=== PATIENT | male | born 1955 | race Caucasian/White ===

== ENCOUNTER → 2024-07-04 08:32 | Outpatient (REF) | payer MEDICARE, OTHER, SELFPAY ==
--- NOTE | 2024-06-30 14:44 | PN.DIAED02 ---
Referral
DSME Class Series Code: [id number]
Referred For: Diabetes Self-Management Training, Medical Nutrition Therapy, Self-Blood Glucose Monitoring, Long-Term Complication Instruction, Accute Complication Instruction, Continuous Glucose Monitoring, Medication management, Care Coordination,
Disease Management
PHI Release Authorization Form Signed: Yes
Patient Problems:
Current Active Problems
Problem Status Onset
Type 2 diabetes mellitus with hyperglycemia ~06/08/24
Demographic
(1) Type 2 diabetes mellitus with hyperglycemia
Status: Chronic Onset Date: ~06/08/24 Code(s): E11.65 - Type 2 diabetes mellitus with hyperglycemia
Patient's primary language-: Mongolian
Education: Some college
Occupation: Self-employed (angel)
Hours Worked/Week: 20-40
Shift: Day
- Social
Primary Support Person: Self
Primary Care Takers: Self
Living Arrangements: Self & spouse, Family
- Learning Methods
Preferred Method: Hands-on demonstration
Barriers to Learning: None
Glycemic Control
- Blood Glucose Monitoring Assessment
Blood glucose monitoring at home: No
- Hyperglycemia Assessment
Experiences Hyperglycemia: Yes
Frequency: 1-3x per week (FEELS TIRED)
- Hypoglycemia Assessment
Patient experiences hypoglycemia: No
- Hemoglobin A1c
Date: 06/16/24
A1C Percentage (%): 8.7
Medical History of Diabetes
Family Diabetes History: Unknown
Previous Diabetes Education: No
Previous visit with Dietitian: No
Complications/Comorbidity/Specialist: Hyperlipidemia (SIMVASTATIN 40 MG QD), Metabolic (DIABETES: METFORMIN 500 MG QD)
Measures
- Anthropometrics
Height: 6 ft 3 in
Actual Weight: 251 lb
- Blood Pressure / Pulse
Blood pressure: 133/69
Pulse: 79
- Diabetes Management
Medical Management for Diabetes: Complete physical exam (06/08/2024), Dental exam (06/21/2024)
Self-Care
- Tobacco Usage
Do you now, or have you ever smoked?: Never smoked
- Alcohol & Drugs Usage
Drinks Alcohol: Yes
Amount/day: Other (1 DRINK/WEEK)
- Meals & Dining
Meals & Dining: Patient skips meals: No, Food Intolerance / Allergy: Yes (SCALLOPS), Cultural / Hindu Dietary Needs: No
Primary Food Assistant G[employer] Of Content [employer] Delivery: Self
Primary Soft Crab Shedder: Self
Dining Out Frequency: Occasionally
- Physical Activity
Physical Limitation: No
Patient participates in physical Activity: Yes
Activity Types: walking
Duration: 21-30 minutes
Frequency: 3-5x per week
- Self Foot-Care
Foot Problems: None
Performs Self Foot-Exam: No
- Patient-Self Assessment
Diabetes Knowledge: Poor
Feelings About Diabetes: Acceptance
General Health: Good
Importance of Health: Extremely
Stress Level: High
Diabetes Interferes With:: Nothing
Barriers to Diabetes Management: Nothing
Depression Survey Score: 0
- Diabetes Identification
Carries Diabetes Identification: No
Diabetes Identification Information Provided: Yes
Care Plan
- Education Needs
Patient Education Needs: Diabetes disease process, Chronic complications, Acute complications, Medication, Monitoring, Physical activity, Psychosocial Adjustment, Nutritional management, Goal setting & problem solving
Recommended Diabetes Training Program based on assessment: Outpatient Diabetes Education Program
- Plan of Care
Plan of Care:
06/30/2024 INITIAL DSME MEETING
Met with Colin and his to discuss diabetes management, he is newly diagnosed with T2D as of May, with HbA1c 8.7%. He does not have diabetic testing supplies, has PCP follow up in August 2024.
I educated on pathophysiology of T2D vs. T1D, complications, importance of proper foot care and eye exams. I provided education on meaning of HbA1c, educated on signs of hyperglycemia, he admits to feeling frequent very tired. Educated on signs of
hypoglycemia and hypoglycemia protocol, he denies symptoms.
I reviewed BS goals, recommended he SMGB once daily for 1-2 weeks, including preprandial AM and 2 hours post prandial with different meals and also documenting meal choices. Suggested he review with diabetes team and PCP in the future.
I provided Contour Next glucometer kit, demonstrated on proper use. He completed a repeat demonstration of checking glucose levels, BS 131 3 hours postprandial.
Requested order for diabetic testing supplies to [facility].
Written material provided. Asked patient to contact health insurer to discuss coverage and fees for DMSE class accredited by [employer], he verbalized understanding. Encouraged her to contact office before class with any concerns.
--- NOTE | 2024-07-01 08:44 | PN.DIAED04 ---
Education Record
- Education Record
Class Attended: Other (INITIAL DSME MEETING)
DSME Class Series Code: [id number]
Instructor: Nurse Practitioner (COURTNEY Hurst)
Pre-Program Knowledge: Needs review / Assistance
Pre-Test Score (%): 8
Goals
- Goal 1
Being Active: Exercise 15 minutes-3 times per week
Goals To Be Evaluated: Exercise 15 mins-3x/week
- Goal 2
Healthy Eating: Reduce portion sizes
Goals To Be Evaluated: Reduce portion sizes
- Goal 3
Monitoring: Follow monitoring schedule
Goals To Be Evaluated: Follow monitoring times
--- NOTE | 2024-07-07 09:18 | PN.DIAED06 ---
Meal Plans - Regular
- Meal Plan
Diabetic Meal Plan Name: 2200 calories
Breakfast - Total Carbohydrate (grams): 60
Breakfast - Starch Carbohydrate: 0
Breakfast - Fruit Carbohydrate: 0
Breakfast - Milk Carbohydrate: 0
Breakfast - Nonstarchy Vegetables: Yes
Breakfast - Meat/Protein: 1
Breakfast - Fat: 2
Morning Snack - Total Carbohydrate (grams): 30
Morning Snack - Starch Carbohydrate: 0
Morning Snack - Fruit Carbohydrate: 0
Morning Snack - Milk Carbohydrate: 0
Morning Snack - Nonstarchy Vegetables: Yes
Morning Snack - Meat/Protein: 0.5
Morning Snack - Fat: 0
Lunch - Total Carbohydrate (grams): 45
Lunch - Starch Carbohydrate: 0
Lunch - Fruit Carbohydrate: 0
Lunch - Milk Carbohydrate: 0
Lunch - Nonstarchy Vegetables: Yes
Lunch - Meat/Protein: 4
Lunch - Fat: 2
Afternoon Snack - Total Carbohydrate (grams): 30
Afternoon Snack - Starch Carbohydrate: 0
Afternoon Snack - Fruit Carbohydrate: 0
Afternoon Snack - Milk Carbohydrate: 0
Afternoon Snack - Nonstarchy Vegetables: Yes
Afternoon Snack - Meat/Protein: 0.5
Afternoon Snack - Fat: 0
Dinner - Total Carbohydrate (grams): 45
Dinner - Starch Carbohydrate: 0
Dinner - Fruit Carbohydrate: 0
Dinner - Milk Carbohydrate: 0
Dinner - Nonstarchy Vegetables: Yes
Dinner - Meat/Protein: 4
Dinner - Fat: 2
Evening Snack - Total Carbohydrate (grams): 15
Evening Snack - Starch Carbohydrate: 0
Evening Snack - Fruit Carbohydrate: 0
Evening Snack - Milk Carbohydrate: 0
Evening Snack - Nonstarchy Vegetables: Yes
Evening Snack - Meat/Protein: 0
Evening Snack - Fat: 0
== END ==
LOC: DES 08:32
PROVIDERS: ATTENDING PHYSICIAN Family Medicine
DX: E11.65 Type 2 diabetes mellitus with hyperglycemia (principal)
CPT/HCPCS: 99078

== ENCOUNTER → 2024-07-11 08:29 | Outpatient (REF) | payer MEDICARE, OTHER, SELFPAY ==
--- NOTE | 2024-07-12 09:57 | PN.DIAED04 ---
Education Record
- Education Record
Class Attended: Class 2
DSME Class Series Code: [id number]
Instructor: Registered Dietitian (Colleen Hayes, RD, LDN, CDE)
Class Curriculum:
Outpatient Diabetes Education Program:
Class 2 (120 minutes)
Incorporate nutritional management into lifestyle
Understanding nutritional value
Understanding carbohydrate counting
Class Length (mins): 120
== END ==
LOC: DES 08:29
PROVIDERS: ATTENDING PHYSICIAN Family Medicine
DX: E11.65 Type 2 diabetes mellitus with hyperglycemia (principal)
CPT/HCPCS: 99078

== ENCOUNTER → 2024-07-18 08:10 | Outpatient (REF) | payer MEDICARE, OTHER, SELFPAY | LOC: DES 08:10 | PROVIDERS: ATTENDING PHYSICIAN Family Medicine | DX: E11.65 Type 2 diabetes mellitus with hyperglycemia (principal) | CPT/HCPCS: 99078 ==

== ENCOUNTER → 2024-07-25 10:48 | Outpatient (REF) | payer MEDICARE, OTHER, SELFPAY | LOC: DES 10:48 | PROVIDERS: ATTENDING PHYSICIAN Family Medicine | DX: E11.65 Type 2 diabetes mellitus with hyperglycemia (principal) | CPT/HCPCS: 99078 ==

== ENCOUNTER → 2024-08-01 13:53 | Outpatient (REF) | payer MEDICARE, OTHER, SELFPAY | LOC: DES 13:53 | PROVIDERS: ATTENDING PHYSICIAN Family Medicine | DX: E11.65 Type 2 diabetes mellitus with hyperglycemia (principal) | CPT/HCPCS: 99078 ==